=== PATIENT | male | born 1985 | race Caucasian/White ===

== ENCOUNTER → 2017-11-11 | Outpatient (CLI) | payer OTHER ==
[~2017-11-11] MED LIST: MESA800T PO; PANT40TA2 PO
[2017-11-11 12:07] LABS: BASOPHILS # (AUTO) 0.1 10^3/uL (0.0-0.1); BASOPHILS % (AUTO) 1 % (0-10); EOSINOPHILS # (AUTO) 0.7 10^3/uL (0.0-0.3); EOSINOPHILS % (AUTO) 8 % (0-10); HEMATOCRIT 44 % (40-54); HEMOGLOBIN 15.2 G/DL (13.3-17.7); LYMPHOCYTES # (AUTO) 3.1 X 10^3 (1.0-4.0); LYMPHOCYTES % (AUTO) 33 % (12-44); MEAN CORPUSCULAR HEMOGLOBIN 32 PG (25-34); MEAN CORPUSCULAR HGB CONC 34 G/DL (32-36); MEAN CORPUSCULAR VOLUME 92 FL (80-99); MEAN PLATELET VOLUME 9.5 FL (7.4-10.4); MONOCYTES # (AUTO) 1.4 X 10^3 (0.0-1.0); MONOCYTES % (AUTO) 15 % (0-12); NEUTROPHILS # (AUTO) 4.1 X 10^3 (1.8-7.8); NEUTROPHILS % (AUTO) 44 % (42-75); PLATELET COUNT 304 10^3/uL (130-400); RED BLOOD COUNT 4.83 10^6/uL (4.35-5.85); RED CELL DISTRIBUTION WIDTH 12.5 % (10.0-14.5); WHITE BLOOD COUNT 9.4 10^3/uL (4.3-11.0)
== END ==
LOC: LAB 11:52
PROVIDERS: ATTEND Internal Medicine Gastroenterology
DX: K50.90 Crohn's disease, unspecified, without complications (principal)
CPT/HCPCS: 36415; 85025

== ENCOUNTER 2017-11-21 08:44 | Emergency (ER) | payer OTHER ==
[~2017-11-21] VITALS: Ht 177.8 cm; Wt 104.3 kg
--- NOTE | 2017-11-21 09:19 | ED Cough/URI ---
General Chief Complaint: Cough/Cold/Flu Symptoms Stated Complaint: SHARP PAIN IN BACK, CHEST CONGESTION Nursing Triage Note: AMB TO ROOM REPORTS 2 WEEK AGO WAS DX WITH STREP AND FLU. CON'T TO HAVE COUGH AND CONGESTION Source: patient Exam Limitations: no limitations History of Present Illness Date Seen by Provider: Nov 21, 2017 Time Seen by Provider: 08:55 Initial Comments Here with report of 2 weeks of upper respiratory symptoms including strep throat and probable influenza. Has persistent cough and nasal congestion currently with some pain in the posterior aspect with cough of the left side of the chest. Denies breathing problems other than the congestion and denies chest pain other than when coughing. Denies nausea or vomiting. Has been using hooa-njw-vmewhlw cough medicine and this is not helping much. Timing/Duration: getting worse Severity/Quality: moderate, dry cough Prior Episodes/Possible Cause: occasional episodes Associated Symptoms: chest pain/soreness, cough, fever/chills, muscle aches, nasal congestion, nasal drainage, shortness of breath, sore throat Allergies and Home Medications Allergies Coded Allergies: erythromycin base (Verified Allergy, Unknown, 08/26/16) Home Medications Mesalamine 800 Mg Tablet.dr, 800 MG PO TID, #90 Ref 2 Prescribed by: CONSTANCE SEGURA on 08/28/16 1147 Pantoprazole Sodium 40 Mg Tablet.dr, 40 MG PO DAILY, #30 Ref 3 Prescribed by: CONSTANCE SEGURA on 08/28/16 1146 Constitutional: see HPI, No chills, No fever EENTM: nose congestion, throat pain Respiratory: cough, No short of breath Cardiovascular: see HPI, No palpitations Gastrointestinal: No abdominal pain, No nausea, No vomiting Skin: no symptoms reported Past Fopkcuy-Jswgjq-Bwqawd Hx Patient Social History Alcohol Use: Occasionally Uses Recreational Drug Use: No Smoking Status: Former Smoker Type Used: Smokeless Tobacco Former Smoker, Quit: Aug 26, 2015 Recent Foreign Travel: No Contact w/Someone Who Travel: No Recent Infectious Disease Expo: No Recent Hopitalizations: Yes Immunizations Up To Date Date of Influenza Vaccine: Jul 26, 2016 Seasonal Allergies Seasonal Allergies: Yes Surgeries History of Surgeries: Yes (wisdom teeth, EGD, COLONOSCOPY) Surgeries: Tonsillectomy, Vasectomy Respiratory History of Respiratory Disorde: Yes Cardiovascular History of Cardiac Disorders: No Neurological History of Neurological Disord: No Reproductive System Hx Reproductive Disorders: No Gastrointestinal History of Gastrointestinal Di: Yes Gastrointestinal Disorders: Colitis Musculoskeletal History of Musculoskeletal Dis: No Endocrine History of Endocrine Disorders: No Cancer History of Cancer: No Psychosocial History of Psychiatric Problem: No Integumentary History of Skin or Integumenta: No Blood Transfusions History of Blood Disorders: No Reviewed Nursing Assessment Reviewed/Agree w Nursing PMH: Yes Family Medical History Significant Family History: No Pertinent Family Hx Physical Exam Vital Signs Vital Signs - First Documented 11/21/17 08:49 Temp 98.2 Pulse 97 Resp 18 B/P (MAP) 138/72 (94) Pulse Ox 98 O2 Delivery Room Air Capillary Refill : Less Than 3 Seconds General Appearance: WD/WN, no apparent distress HEENT: PERRL/EOMI, TMs normal, pharyngeal erythema, other (moderate bilateral nasal congestion with clear rhinorrhea. Moderate sinus pressure noted to the face.) Neck: full range of motion, supple Respiratory: no accessory muscle use, crackles (left midlung), No wheezing Cardiovascular: regular rate, rhythm, no murmur Gastrointestinal: non tender, soft Extremities: non-tender, normal inspection Neurologic/Psychiatric: alert, oriented x 3 Skin: normal color, warm/dry Progress/Results/Core Measures Suspected Sepsis Recent Fever Within 48 Hours: No Infection Criteria Present: None New/Unexplained Altered Menta: No Sepsis Screen: No Definite Risk Sepsis Diagnosis: SIRS Temperature:98.2 Pulse: 97 Respiratory Rate: 18 Blood Pressure 138 /72 Mean: 94 Results/Orders My Orders Orders - EULA PATEL MD Chest Pa/Lat (2 View) (11/21/17 08:53) Vital Signs/I&O Vital Sign - Last 12Hours 11/21/17 08:49 Temp 98.2 Pulse 97 Resp 18 B/P (MAP) 138/72 (94) Pulse Ox 98 O2 Delivery Room Air Capillary Refill : Less Than 3 Seconds Blood Pressure Mean: 94 Progress Note : Progress Note Seen and evaluated. Two-view chest x-ray ordered. 0936: Chest x-ray is negative. Patient does have the upper respiratory symptoms and there is concerns about sinusitis. Patient is on Humira for his colitis so I think antibiotics would be appropriate. This was discussed with the patient who agrees. Discharged home with return precautions. Patient verbalize understanding of instructions and agreement with plan. Diagnostic Imaging Diagonstic Imaging: Xray Plain Films/CT/US/NM/MRI: chest Comments NAME: YRN BACON [employer] REC#: [id number] PT STATUS: REG ER : 1985 PHYSICIAN: EULA PATEL MD ADMIT DATE: 11/21/17/ER Signed Date of Exam: 11/21/17 CHEST PA/LAT (2 VIEW) INDICATION: Cough, tightness of the chest. FINDINGS: The lungs are clear. The heart size and vascularity are within normal limits. There is no effusion or pneumothorax. IMPRESSION: No acute appearing abnormality. Dictated by: Dictated on workstation # [id number] Dict: 11/21/17913 Trans: 11/21/17932 Interpreted by: ERINN BYRNE Electronically signed by: ERINN BYRNE 11/21/17932 Reviewed: Reviewed by Me Departure Impression Impression: Primary Impression: Upper respiratory infection Qualified Codes: J06.9 - Acute upper respiratory infection, unspecified Additional Impression: Acute sinusitis Qualified Codes: J01.10 - Acute frontal sinusitis, unspecified Disposition: 01 HOME, SELF-CARE Condition: Improved Departure-Patient Inst. Decision time for Depature: 09:41 Referrals: JOHN CORTEZ MD (PCP/Family) Primary Care Physician Patient Instructions: Bacterial Upper Respiratory Infection, Adult (DC), Sinusitis, Adult (DC) Add. Discharge Instructions: All discharge instructions reviewed with patient and/or family. Voiced understanding. Take medications as directed. Follow-up with your DrRoshan in a few days for recheck. Return for worse pain, fever, vomiting, weakness, breathing problems or other concerns as needed. Drink plenty of fluids. You may use Afrin nasal spray or the generic, 12 hour relief, 2 sprays to each nostril twice daily for 3 days only and then stop. Do not use more than 3 days. Scripts Cefdinir (Cefdinir) 300 Mg Capsule 300 MG PO BID, #20 CAP 0 Refills Prov: EULA PATEL MD 11/21/17 EULA PATEL MD Nov 21, 2017 09:19
[2017-11-21] MEDS ORDERED: CEFD300C3 PO (09:43)
[2017-11-21 10:08] VITALS: BP 134/72
--- OUTSIDE RECORDS SUMMARY | 2017-11-22 11:08 | XMS REPORT | Continuity of Care Document ---
Author Author [facility] Organization [facility] Address Unknown Phone Unavailable Allergies Active Description Code Type Severity Reaction Onset Reported/Identified Relationship to Patient Clinical Status Yes erythromycin base [id number] Drug Allergy Unknown N/A 08/26/2016 Medications There is no data. Problems Date Dx Coded Attending Type Code Diagnosis Diagnosed By 08/28/2014 Ot 845.00 08/28/2014 Ot E000.8 08/28/2014 Ot E849.0 08/28/2014 Ot E927.0 02/23/2015 Ot 845.00 02/23/2015 Ot E000.8 02/23/2015 Ot E849.0 02/23/2015 Ot E927.0 02/23/2015 Ot 845.00 02/23/2015 Ot E000.8 02/23/2015 Ot E849.0 02/23/2015 Ot E927.0 03/17/2015 Ot 845.00 03/17/2015 Ot E000.8 03/17/2015 Ot E849.0 03/17/2015 Ot E927.0 03/17/2015 LOS GRAHAM MD Ot V25.8 04/03/2015 LOS GRAHAM MD Ot V25.8 04/03/2015 Ot 845.00 04/03/2015 Ot E000.8 04/03/2015 Ot E849.0 04/03/2015 Ot E927.0 04/03/2015 LOS GRAHAM MD Ot V25.8 04/20/2015 Ot 845.00 04/20/2015 Ot E000.8 04/20/2015 Ot E849.0 04/20/2015 Ot E927.0 04/20/2015 LOS GRAHAM MD Ot V25.8 05/24/2015 LOS GRAHAM MD Ot V25.8 08/20/2016 DI ALEXANDREP Ot K76.0 FATTY (CHANGE OF) LIVER, NOT ELSEWHERE C 08/20/2016 DI ALEXANDRE BLIND CLEANER Ot R10.84 GENERALIZED ABDOMINAL PAIN 08/20/2016 DI ALEXANDRE BLIND CLEANER Ot R59.0 LOCALIZED ENLARGED LYMPH NODES 08/20/2016 DI ALEXANDRE BLIND CLEANER Ot R91.1 SOLITARY PULMONARY NODULE 08/20/2016 DI ALEXANDRE BLIND CLEANER Ot K76.0 FATTY (CHANGE OF) LIVER, NOT ELSEWHERE C 08/20/2016 DI ALEXANDRE BLIND CLEANER Ot R10.84 GENERALIZED ABDOMINAL PAIN 08/20/2016 DI ALEXANDRE BLIND CLEANER Ot R59.0 LOCALIZED ENLARGED LYMPH NODES 08/20/2016 DI ALEXANDRE BLIND CLEANER Ot R91.1 SOLITARY PULMONARY NODULE 08/26/2016 COLTON BAE, CONSTANCE Salcido Ot Z01.818 ENCOUNTER FOR OTHER PREPROCEDURAL EXAMIN 08/27/2016 CONSTANCE SEGURA MD Ot Z01.818 ENCOUNTER FOR OTHER PREPROCEDURAL EXAMIN 08/28/2016 CONSTANCE SEGURA MD Ot K25.9 GASTRIC ULCER, UNSP ACUTE OR CHRONIC, 08/28/2016 CONSTANCE SEGURA MD Ot K52.9 NONINFECTIVE GASTROENTERITIS AND COLITIS 08/28/2016 CONSTANCE SEGURA MD Ot K62.89 OTHER SPECIFIED DISEASES OF ANUS AND REC 08/28/2016 CONSTANCE SEGURA MD Ot K92.1 MELENA 08/28/2016 CONSTANCE SEGURA MD Ot R19.7 DIARRHEA, UNSPECIFIED 09/08/2016 CONSTANCE SEGURA MD Ot K25.9 GASTRIC ULCER, UNSP ACUTE OR CHRONIC, 09/08/2016 CONSTANCE SEGURA MD Ot K52.9 NONINFECTIVE GASTROENTERITIS AND COLITIS 09/08/2016 CONSTANCE SEGURA MD Ot K62.89 OTHER SPECIFIED DISEASES OF ANUS AND REC 09/08/2016 CONSTANCE SEGURA MD Ot K92.1 MELENA 09/09/2016 CONSTANCE SEGURA MD Ot K25.9 GASTRIC ULCER, UNSP ACUTE OR CHRONIC, 09/09/2016 CONSTANCE SEGURA MD Ot K52.9 NONINFECTIVE GASTROENTERITIS AND COLITIS 09/09/2016 CONSTANCE SEGURA MD Ot K62.89 OTHER SPECIFIED DISEASES OF ANUS AND REC 09/09/2016 CONSTANCE SEGURA MD M Ot K92.1 MELENA 09/10/2016 COLTON BAE, CONSTANCE Salcido Ot K25.9 GASTRIC ULCER, UNSP ACUTE OR CHRONIC, 09/10/2016 COLTON BAE, CONSTANCE Salcido Ot K52.9 NONINFECTIVE GASTROENTERITIS AND COLITIS 09/10/2016 COLTON BAE, CONSTANCE Salcido Ot K62.89 OTHER SPECIFIED DISEASES OF ANUS AND REC 09/10/2016 COLTON BAE, CONSTANCE Salcido Ot K92.1 MELENA 09/11/2016 DI ALEXANDRE BLIND CLEANER Ot K76.0 FATTY (CHANGE OF) LIVER, NOT ELSEWHERE C 09/11/2016 DI ALEXANDRE BLIND CLEANER Ot R10.84 GENERALIZED ABDOMINAL PAIN 09/11/2016 DI ALEXANDRE BLIND CLEANER Ot R59.0 LOCALIZED ENLARGED LYMPH NODES 09/11/2016 DI ALEXANDRE BLIND CLEANER Ot R91.1 SOLITARY PULMONARY NODULE 09/11/2016 GARTH GILLIS [employer] Ot K92.1 MELENA 09/11/2016 GARTH GILLIS [employer] TEACHER Ot R53.83 OTHER FATIGUE 09/22/2016 GARTH GILLIS [employer] TEACHER Ot R07.9 CHEST PAIN, UNSPECIFIED 09/23/2016 GARTH GILLIS 7[employer] TEACHER Ot R07.9 CHEST PAIN, UNSPECIFIED 09/26/2016 ARNIE BAE, NUNU Chavez Ot K51.90 ULCERATIVE COLITIS, UNSPECIFIED, WITHOUT 09/29/2016 ID ALEXANDRE BLIND CLEANER Ot K76.0 FATTY (CHANGE OF) LIVER, NOT ELSEWHERE C 09/29/2016 DI ALEXANDRE BLIND CLEANER Ot R10.84 GENERALIZED ABDOMINAL PAIN 09/29/2016 DI ALEXANDRE BLIND CLEANER Ot R59.0 LOCALIZED ENLARGED LYMPH NODES 09/29/2016 DI ALEXANDRE BLIND CLEANER Ot R91.1 SOLITARY PULMONARY NODULE 09/29/2016 GARTH GILLIS [employer] TEACHER Ot K92.1 MELENA 09/29/2016 GARTH GILLIS 7[employer]UDIES TEACHER Ot R53.83 OTHER FATIGUE 09/29/2016 GARTH GILLIS 7[employer]UD[employer] TEACHER Ot R07.9 CHEST PAIN, UNSPECIFIED 09/29/2016 GARTH GILLIS 7[employer]UD[employer] TEACHER Ot D64.9 ANEMIA, UNSPECIFIED 09/29/2016 GARTH GILLIS [employer] TEACHER Ot K92.1 MELENA 09/29/2016 ARNIE BAE, NUNU P Ot K51.90 ULCERATIVE COLITIS, UNSPECIFIED, WITHOUT 10/01/2016 ADRIENNE BAE, YOJANA Travis Ot D64.9 ANEMIA, UNSPECIFIED 10/02/2016 ARNIE BAE, NUNU P Ot K51.90 ULCERATIVE COLITIS, UNSPECIFIED, WITHOUT 10/03/2016 ARNIE BAE, NUNU P Ot K51.90 ULCERATIVE COLITIS, UNSPECIFIED, WITHOUT 10/06/2016 FABIAN KATHLEEN [employer] TE[employer]ER Ot D64.9 ANEMIA, UNSPECIFIED 10/06/2016 FABIAN KATHLEEN [employer] TEACHER Ot I82.442 ACUTE EMBOLISM AND THROMBOSIS OF LEFT TI 10/06/2016 FABIAN KATHLEEN [employer] TEACHER Ot K51.911 ULCERATIVE COLITIS, UNSPECIFIED WITH REC 10/06/2016 FABIAN KATHLEEN [employer] TEACHER Ot M79.662 PAIN IN LEFT LOWER LEG 10/07/2016 FABIAN KATHLEEN APRN Ot D64.9 ANEMIA, UNSPECIFIED 10/07/2016 FABIAN KATHLEEN [employer] TEACHER Ot I82.442 ACUTE EMBOLISM AND THROMBOSIS OF LEFT TI 10/07/2016 FABIAN KATHLEEN [employer] TEACHER Ot K51.911 ULCERATIVE COLITIS, UNSPECIFIED WITH REC 10/07/2016 FABIAN KATHLEEN [employer] TEACHER Ot M79.662 PAIN IN LEFT LOWER LEG 10/12/2016 FABIAN KATHLEEN 7[employer] TEACHER Ot D64.9 ANEMIA, UNSPECIFIED 10/12/2016 FABIAN KATHLEEN 7[employer]UD[employer] TEACHER Ot I82.442 ACUTE EMBOLISM AND THROMBOSIS OF LEFT TI 10/12/2016 FABIAN KATHLEEN [employer] TEACHER Ot K51.911 ULCERATIVE COLITIS, UNSPECIFIED WITH REC 10/12/2016 FABIAN KATHLEEN [employer] TEACHER Ot M79.662 PAIN IN LEFT LOWER LEG 10/16/2016 GARTH GILLIS [employer] TEACHER Ot R07.9 CHEST PAIN, UNSPECIFIED 10/22/2016 GARTH GILLIS [employer] TEACHER Ot D64.9 ANEMIA, UNSPECIFIED 10/22/2016 GARTH GILLIS [employer] TEACHER Ot K92.1 MELENA 10/22/2016 ARNIE BAE, NUNU P Ot K51.90 ULCERATIVE COLITIS, UNSPECIFIED, WITHOUT 10/30/2016 ADRIENNE BAE, YOJANA Travis Ot D64.9 ANEMIA, UNSPECIFIED 10/30/2016 ARNIE BAE, NUNU P Ot K51.90 ULCERATIVE COLITIS, UNSPECIFIED, WITHOUT 01/18/2017 ARNIE BAE, NUNU P Ot K51.90 ULCERATIVE COLITIS, UNSPECIFIED, WITHOUT 02/10/2017 ARNIE BAE, NUNU P Ot K51.90 ULCERATIVE COLITIS, UNSPECIFIED, WITHOUT 08/27/2017 DI ALEXANDRE BLIND CLEANER Ot K76.0 FATTY (CHANGE OF) LIVER, NOT ELSEWHERE C 08/27/2017 DI ALEXANDRE BLIND CLEANER Ot R10.84 GENERALIZED ABDOMINAL PAIN 08/27/2017 DI ALEXANDRE BLIND CLEANER Ot R59.0 LOCALIZED ENLARGED LYMPH NODES 08/27/2017 DI ALEXANDRE BLIND CLEANER Ot R91.1 SOLITARY PULMONARY NODULE 08/27/2017 GARTH GILLIS [employer] TEACHER Ot K92.1 MELENA 08/27/2017 GARTH GILLIS [employer]IES TEACHER Ot R53.83 OTHER FATIGUE 08/27/2017 GARTH GILLIS [employer]IES TEACHER Ot R07.9 CHEST PAIN, UNSPECIFIED 08/27/2017 GARTH GILLIS [employer]UDIES TEACHER Ot D64.9 ANEMIA, UNSPECIFIED 08/27/2017 GARTH GILLIS 7[employer]IES TEACHER Ot K92.1 MELENA 08/27/2017 ARNIE BAE, NUNU P Ot K51.90 ULCERATIVE COLITIS, UNSPECIFIED, WITHOUT 08/27/2017 ADRIENNE BAE, YOJANA Travis Ot D64.9 ANEMIA, UNSPECIFIED 08/27/2017 ARNIE BAE, NUNU P Ot K51.90 ULCERATIVE COLITIS, UNSPECIFIED, WITHOUT 08/30/2017 DI ALEXANDRE BLIND CLEANER Ot K76.0 FATTY (CHANGE OF) LIVER, NOT ELSEWHERE C 08/30/2017 DI ALEXANDRE BLIND CLEANER Ot R10.84 GENERALIZED ABDOMINAL PAIN 08/30/2017 DI ALEXANDRE BLIND CLEANER Ot R59.0 LOCALIZED ENLARGED LYMPH NODES 08/30/2017 DI ALEXANDRE BLIND CLEANER Ot R91.1 SOLITARY PULMONARY NODULE 08/30/2017 GARTH GILLIS [employer] TEACHER Ot K92.1 MELENA 08/30/2017 GARTH GILLIS 7[employer]UDIES TEACHER Ot R53.83 OTHER FATIGUE 08/30/2017 GARTH GILLIS [employer]UDIES TEACHER Ot R07.9 CHEST PAIN, UNSPECIFIED 08/30/2017 GARTH GILLIS 7[employer]UDIES TEACHER Ot D64.9 ANEMIA, UNSPECIFIED 08/30/2017 GARTH GILLIS 7[employer]UDIES TEACHER Ot K92.1 MELENA 08/30/2017 ARNIE BAE, NUNU P Ot K51.90 ULCERATIVE COLITIS, UNSPECIFIED, WITHOUT 08/30/2017 ADRIENNE BAE, YOJANA Travis Ot D64.9 ANEMIA, UNSPECIFIED 08/30/2017 ARNIE BAE, NUNU P Ot K51.90 ULCERATIVE COLITIS, UNSPECIFIED, WITHOUT 11/11/2017 ALEXANDREDI BLIND CLEANER Ot K76.0 FATTY (CHANGE OF) LIVER, NOT ELSEWHERE C 11/11/2017 BETTIEDI BLIND CLEANER Ot R10.84 GENERALIZED ABDOMINAL PAIN 11/11/2017 BETTIEDI BLIND CLEANER Ot R59.0 LOCALIZED ENLARGED LYMPH NODES 11/11/2017 BETTIEDI BLIND CLEANER Ot R91.1 SOLITARY PULMONARY NODULE 11/11/2017 GARTH GILLIS [employer]UDIES TEACHER Ot K92.1 MELENA 11/11/2017 GARTH GILLIS [employer]UDIES TEACHER Ot R53.83 OTHER FATIGUE 11/11/2017 GARTH GILLIS 7[employer]UDIES TEACHER Ot R07.9 CHEST PAIN, UNSPECIFIED 11/11/2017 GARTH GILLIS 7[employer]UDIES TEACHER Ot D64.9 ANEMIA, UNSPECIFIED 11/11/2017 GARTH GILLIS 7[employer]UDIES TEACHER Ot K92.1 MELENA 11/11/2017 ARNIE BAE, NUNU Chavez Ot K51.90 ULCERATIVE COLITIS, UNSPECIFIED, WITHOUT 11/11/2017 ADRIENNE BAE, YOJANA Travis Ot D64.9 ANEMIA, UNSPECIFIED 11/11/2017 ARNIE BAE, NUNU Chavez Ot K51.90 ULCERATIVE COLITIS, UNSPECIFIED, WITHOUT 11/12/2017 ARNIE BAE, NUNU Chavez Ot K50.90 CROHN'S DISEASE, UNSPECIFIED, WITHOUT CO Procedures There is no data. Results Test Result Range Whole blood hemoglobin and hematocrit panel - 08/18/16 17:10 Venous blood hemoglobin measurement (mass/volume) 15.5 g/dL 13.3-17.7 Blood hematocrit (volume fraction) 45 % 40-54 Complete blood count (CBC) with automated white blood cell (WBC) differential - 08/28/16 12:54 Blood leukocytes automated count (number/volume) 10.5 10*3/uL 4.3-11.0 Blood erythrocytes automated count (number/volume) 4.38 10*6/uL 4.35-5.85 Venous blood hemoglobin measurement (mass/volume) 13.3 g/dL 13.3-17.7 Blood hematocrit (volume fraction) 39 % 40-54 Automated erythrocyte mean corpuscular volume 88 [foz_us] 80-99 Automated erythrocyte mean corpuscular hemoglobin (mass per erythrocyte) 30 pg 25-34 Automated erythrocyte mean corpuscular hemoglobin concentration measurement ( mass/volume) 34 g/dL 32-36 Automated erythrocyte distribution width ratio 12.9 % 10.0-14.5 Automated blood platelet count (count/volume) 323 10*3/uL 130-400 Automated blood platelet mean volume measurement 9.4 [foz_us] 7.4-10.4 Automated blood neutrophils/100 leukocytes 50 % 42-75 Automated blood lymphocytes/100 leukocytes 32 % 12-44 Blood monocytes/100 leukocytes 12 % 0-12 Automated blood eosinophils/100 leukocytes 6 % 0-10 Automated blood basophils/100 leukocytes 0 % 0-10 Blood neutrophils automated count (number/volume) 5.2 10*3 1.8-7.8 Blood lymphocytes automated count (number/volume) 3.3 10*3 1.0-4.0 Blood monocytes automated count (number/volume) 1.3 10*3 0.0-1.0 Automated eosinophil count 0.7 10*3/uL 0.0-0.3 Automated blood basophil count (count/volume) 0.0 10*3/uL 0.0-0.1 Comprehensive metabolic panel - 08/28/16 12:54 Serum or plasma sodium measurement (moles/volume) 138 mmol/L 135-145 Serum or plasma potassium measurement (moles/volume) 3.9 mmol/L 3.6-5.0 Serum or plasma chloride measurement (moles/volume) 104 mmol/L 98-107 Carbon dioxide 28 mmol/L 21-32 Serum or plasma anion gap determination (moles/volume) 6 mmol/L 5-14 Serum or plasma urea nitrogen measurement (mass/volume) 8 mg/dL 7-18 Serum or plasma creatinine measurement (mass/volume) 1.04 mg/dL 0.60-1.30 Serum or plasma urea nitrogen/creatinine mass ratio 8 NRG Serum or plasma creatinine measurement with calculation of estimated glomerular filtration rate > NRG Serum or plasma glucose measurement (mass/volume) 88 mg/dL 70-105 Serum or plasma calcium measurement (mass/volume) 8.7 mg/dL 8.5-10.1 Serum or plasma total bilirubin measurement (mass/volume) 0.5 mg/dL 0.1-1.0 Serum or plasma alkaline phosphatase measurement (enzymatic activity/volume) 75 U/L 40-136 Serum or plasma aspartate aminotransferase measurement (enzymatic activity/ volume) 20 U/L 5-34 Serum or plasma alanine aminotransferase measurement (enzymatic activity/volume ) 23 U/L 0-55 Serum or plasma protein measurement (mass/volume) 6.2 g/dL 6.4-8.2 Serum or plasma albumin measurement (mass/volume) 3.7 g/dL 3.2-4.5 Serum or plasma irritable bowel disease prognostic panel by immunoassay - 08/28 12:54 Antineutrophil cytoplasmic antibody (ANCA) assay <1:20 < 1:20 Antineutrophil cytoplasmic antibody (ANCA) pattern Not Indicated NRG Serum cardoso's yeast IgA antibody assay (units/volume) < % NRG Serum cardoso's yeast IgG antibody assay (units/volume) < % NRG Complete blood count (CBC) with automated white blood cell (WBC) differential - 09/25/16 20:14 Blood leukocytes automated count (number/volume) 14.4 10*3/uL 4.3-11.0 Blood erythrocytes automated count (number/volume) 3.20 10*6/uL 4.35-5.85 Venous blood hemoglobin measurement (mass/volume) 8.6 g/dL 13.3-17.7 Blood hematocrit (volume fraction) 28 % 40-54 Automated erythrocyte mean corpuscular volume 86 [foz_us] 80-99 Automated erythrocyte mean corpuscular hemoglobin (mass per erythrocyte) 27 pg 25-34 Automated erythrocyte mean corpuscular hemoglobin concentration measurement ( mass/volume) 31 g/dL 32-36 Automated erythrocyte distribution width ratio 12.9 % 10.0-14.5 Automated blood platelet count (count/volume) 504 10*3/uL 130-400 Automated blood platelet mean volume measurement 9.4 [foz_us] 7.4-10.4 Automated blood neutrophils/100 leukocytes 64 % 42-75 Automated blood lymphocytes/100 leukocytes 24 % 12-44 Blood monocytes/100 leukocytes 12 % 0-12 Automated blood eosinophils/100 leukocytes 1 % 0-10 Automated blood basophils/100 leukocytes 0 % 0-10 Blood neutrophils automated count (number/volume) 9.2 10*3 1.8-7.8 Blood lymphocytes automated count (number/volume) 3.4 10*3 1.0-4.0 Blood monocytes automated count (number/volume) 1.7 10*3 0.0-1.0 Automated eosinophil count 0.1 10*3/uL 0.0-0.3 Automated blood basophil count (count/volume) 0.0 10*3/uL 0.0-0.1 Complete blood count (CBC) with automated white blood cell (WBC) differential - 09/25/16 20:14 Blood leukocytes automated count (number/volume) 14.7 10*3/uL 4.3-11.0 Blood erythrocytes automated count (number/volume) 3.14 10*6/uL 4.35-5.85 Venous blood hemoglobin measurement (mass/volume) 8.6 g/dL 13.3-17.7 Blood hematocrit (volume fraction) 27 % 40-54 Automated erythrocyte mean corpuscular volume 87 [foz_us] 80-99 Automated erythrocyte mean corpuscular hemoglobin (mass per erythrocyte) 27 pg 25-34 Automated erythrocyte mean corpuscular hemoglobin concentration measurement ( mass/volume) 31 g/dL 32-36 Automated erythrocyte distribution width ratio 13.0 % 10.0-14.5 Automated blood platelet count (count/volume) 516 10*3/uL 130-400 Automated blood platelet mean volume measurement 9.5 [foz_us] 7.4-10.4 Automated blood neutrophils/100 leukocytes 64 % 42-75 Automated blood lymphocytes/100 leukocytes 23 % 12-44 Blood monocytes/100 leukocytes 12 % 0-12 Automated blood eosinophils/100 leukocytes 1 % 0-10 Automated blood basophils/100 leukocytes 0 % 0-10 Blood neutrophils automated count (number/volume) 9.4 10*3 1.8-7.8 Blood lymphocytes automated count (number/volume) 3.4 10*3 1.0-4.0 Blood monocytes automated count (number/volume) 1.8 10*3 0.0-1.0 Automated eosinophil count 0.1 10*3/uL 0.0-0.3 Automated blood basophil count (count/volume) 0.0 10*3/uL 0.0-0.1 Blood manual differential performed detection - 09/25/16 20:14 Blood monocytes/100 leukocytes 5 % NRG Manual blood segmented neutrophils/100 leukocytes 50 % NRG Blood band neutrophils/100 leukocytes 9 % NRG Manual blood lymphocytes/100 leukocytes 33 % NRG Manual eosinophils/100 leukocytes in nose 2 % NRG Manual blood basophils/100 leukocytes 1 % NRG Blood hypochromia detection by light microscopy MODERATE NRG Blood stomatocytes detection by light microscopy SLIGHT NRG Blood spherocytes detection by light microscopy SLIGHT NRG Blood manual differential performed detection - 09/25/16 20:14 Blood monocytes/100 leukocytes 5 % NRG Manual blood segmented neutrophils/100 leukocytes 50 % NRG Blood band neutrophils/100 leukocytes 9 % NRG Manual blood lymphocytes/100 leukocytes 33 % NRG Manual eosinophils/100 leukocytes in nose 2 % NRG Manual blood basophils/100 leukocytes 1 % NRG Blood hypochromia detection by light microscopy MODERATE NRG Blood stomatocytes detection by light microscopy SLIGHT NRG Blood spherocytes detection by light microscopy SLIGHT NRG Automated blood complete blood count (hemogram) panel - 09/29/16 15:01 Blood leukocytes automated count (number/volume) 12.2 10*3/uL 4.3-11.0 Blood erythrocytes automated count (number/volume) 3.14 10*6/uL 4.35-5.85 Venous blood hemoglobin measurement (mass/volume) 8.2 g/dL 13.3-17.7 Blood hematocrit (volume fraction) 27 % 40-54 Automated erythrocyte mean corpuscular volume 86 [foz_us] 80-99 Automated erythrocyte mean corpuscular hemoglobin (mass per erythrocyte) 26 pg 25-34 Automated erythrocyte mean corpuscular hemoglobin concentration measurement ( mass/volume) 31 g/dL 32-36 Automated erythrocyte distribution width ratio 13.6 % 10.0-14.5 Automated blood platelet count (count/volume) 478 10*3/uL 130-400 Automated blood platelet mean volume measurement 8.7 [foz_us] 7.4-10.4 [id number] - 09/29/16 15:01 [id number] SPECIMEN AVAILABLE NRG QUANTIFERON-TB GOLD - 09/29/16 15:01 QuantiFERON-TB test Negative NEGATIVE Mitogen stimulated gamma interferon [units/volume] corrected for background in blood 0.06 [iU]/mL 0.00-7.99 Mitogen stimulated gamma interferon [units/volume] in blood 1.27 [iU ]/mL 0.50-10.00 Qualitative QuantiFERON-TB gold in tube test 0.02 0.00- 0.34 Complete blood count (CBC) with automated white blood cell (WBC) differential - 10/06/16 14:40 Blood leukocytes automated count (number/volume) 16.1 10*3/uL 4.3-11.0 Blood erythrocytes automated count (number/volume) 3.90 10*6/uL 4.35-5.85 Venous blood hemoglobin measurement (mass/volume) 9.9 g/dL 13.3-17.7 Blood hematocrit (volume fraction) 33 % 40-54 Automated erythrocyte mean corpuscular volume 84 [foz_us] 80-99 Automated erythrocyte mean corpuscular hemoglobin (mass per erythrocyte) 25 pg 25-34 Automated erythrocyte mean corpuscular hemoglobin concentration measurement ( mass/volume) 30 g/dL 32-36 Automated erythrocyte distribution width ratio 14.7 % 10.0-14.5 Automated blood platelet count (count/volume) 454 10*3/uL 130-400 Automated blood platelet mean volume measurement 9.1 [foz_us] 7.4-10.4 Automated blood neutrophils/100 leukocytes 72 % 42-75 Automated blood lymphocytes/100 leukocytes 21 % 12-44 Blood monocytes/100 leukocytes 6 % 0-12 Automated blood eosinophils/100 leukocytes 1 % 0-10 Automated blood basophils/100 leukocytes 0 % 0-10 Blood neutrophils automated count (number/volume) 11.5 10*3 1.8-7.8 Blood lymphocytes automated count (number/volume) 3.3 10*3 1.0-4.0 Blood monocytes automated count (number/volume) 1.0 10*3 0.0-1.0 Automated eosinophil count 0.2 10*3/uL 0.0-0.3 Automated blood basophil count (count/volume) 0.0 10*3/uL 0.0-0.1 Complete urinalysis with reflex to culture - 10/06/16 14:40 Urine color determination YELLOW NRG Urine clarity determination CLEAR NRG Urine pH measurement by test strip 5 5-9 Specific gravity of urine by test strip 1.025 1.016- 1.022 Urine protein assay by test strip, semi-quantitative NEGATIVE NEGATIVE Urine glucose detection by automated test strip NEGATIVE NEGATIVE Erythrocytes detection in urine sediment by light microscopy NEGATIVE NEGATIVE Urine ketones detection by automated test strip NEGATIVE NEGATIVE Urine nitrite detection by test strip NEGATIVE NEGATIVE Urine total bilirubin detection by test strip NEGATIVE NEGATIVE Urine urobilinogen measurement by automated test strip (mass/volume) NORMAL NORMAL Urine leukocyte esterase detection by dipstick 1+ NEGATIVE Automated urine sediment erythrocyte count by microscopy (number/high power field) NONE NRG Automated urine sediment leukocyte count by microscopy (number/high power field ) RARE NRG Bacteria detection in urine sediment by light microscopy NEGATIVE NRG Squamous epithelial cells detection in urine sediment by light microscopy NONE NRG Crystals detection in urine sediment by light microscopy PRESENT NRG Casts detection in urine sediment by light microscopy NONE NRG Mucus detection in urine sediment by light microscopy NEGATIVE NRG Complete urinalysis with reflex to culture NO NRG Calcium oxalate crystals detection in urine sediment by light microscopy LARGE NR Comprehensive metabolic panel - 10/06/16 14:40 Serum or plasma sodium measurement (moles/volume) 138 mmol/L 135-145 Serum or plasma potassium measurement (moles/volume) 3.7 mmol/L 3.6-5.0 Serum or plasma chloride measurement (moles/volume) 103 mmol/L 98-107 Carbon dioxide 23 mmol/L 21-32 Serum or plasma anion gap determination (moles/volume) 12 mmol/L 5-14 Serum or plasma urea nitrogen measurement (mass/volume) 8 mg/dL 7-18 Serum or plasma creatinine measurement (mass/volume) 0.81 mg/dL 0.60-1.30 Serum or plasma urea nitrogen/creatinine mass ratio 10 NRG Serum or plasma creatinine measurement with calculation of estimated glomerular filtration rate > NRG Serum or plasma glucose measurement (mass/volume) 130 mg/dL 70-105 Serum or plasma calcium measurement (mass/volume) 8.4 mg/dL 8.5-10.1 Serum or plasma total bilirubin measurement (mass/volume) 0.2 mg/dL 0.1-1.0 Serum or plasma alkaline phosphatase measurement (enzymatic activity/volume) 84 U/L 40-136 Serum or plasma aspartate aminotransferase measurement (enzymatic activity/ volume) 18 U/L 5-34 Serum or plasma alanine aminotransferase measurement (enzymatic activity/volume ) 32 U/L 0-55 Serum or plasma protein measurement (mass/volume) 6.4 g/dL 6.4-8.2 Serum or plasma albumin measurement (mass/volume) 3.2 g/dL 3.2-4.5 Blood manual differential performed detection - 10/06/16 14:40 Blood monocytes/100 leukocytes 8 % NRG Manual blood segmented neutrophils/100 leukocytes 71 % NRG Blood band neutrophils/100 leukocytes 0 % NRG Manual blood lymphocytes/100 leukocytes 20 % NRG Manual eosinophils/100 leukocytes in nose 1 % NRG Manual blood basophils/100 leukocytes 0 % NRG Blood erythrocyte morphology finding identification NORMAL NRG Complete blood count (CBC) with automated white blood cell (WBC) differential - 11/11/17 12:04 Blood leukocytes automated count (number/volume) 9.4 10*3/uL 4.3-11.0 Blood erythrocytes automated count (number/volume) 4.83 10*6/uL 4.35-5.85 Venous blood hemoglobin measurement (mass/volume) 15.2 g/dL 13.3-17.7 Blood hematocrit (volume fraction) 44 % 40-54 Automated erythrocyte mean corpuscular volume 92 [foz_us] 80-99 Automated erythrocyte mean corpuscular hemoglobin (mass per erythrocyte) 32 pg 25-34 Automated erythrocyte mean corpuscular hemoglobin concentration measurement ( mass/volume) 34 g/dL 32-36 Automated erythrocyte distribution width ratio 12.5 % 10.0-14.5 Automated blood platelet count (count/volume) 304 10*3/uL 130-400 Automated blood platelet mean volume measurement 9.5 [foz_us] 7.4-10.4 Automated blood neutrophils/100 leukocytes 44 % 42-75 Automated blood lymphocytes/100 leukocytes 33 % 12-44 Blood monocytes/100 leukocytes 15 % 0-12 Automated blood eosinophils/100 leukocytes 8 % 0-10 Automated blood basophils/100 leukocytes 1 % 0-10 Blood neutrophils automated count (number/volume) 4.1 10*3 1.8-7.8 Blood lymphocytes automated count (number/volume) 3.1 10*3 1.0-4.0 Blood monocytes automated count (number/volume) 1.4 10*3 0.0-1.0 Automated eosinophil count 0.7 10*3/uL 0.0-0.3 Automated blood basophil count (count/volume) 0.1 10*3/uL 0.0-0.1 Encounters ACCT No. Visit Date/Time Discharge Status Pt. Type Provider Facility Loc./Unit Complaint [id number] 11/11/2017 11:52:00 11/11/2017 23:59:59 CLS Outpatient NUNU GAITAN MD [facility] LAB K50.90 [id number] 10/06/2016 14:29:00 10/06/2016 17:57:00 DIS Emergency KATHLEEN FABIAN Odell [employer] [facility] ER LEFT CALF PAIN/SWELLING [id number] 09/29/2016 14:44:00 09/29/2016 23:59:59 CLS Outpatient NUNU GAITAN MD [facility] LAB K51.90 [id number] 09/29/2016 14:43:00 09/29/2016 23:59:59 CLS Outpatient YOJANA DELEON MD [facility] LAB ANEMIA, LOW HGB [id number] 09/25/2016 19:46:00 09/25/2016 23:59:59 CLS Outpatient NUNU GAITAN MD [facility] LAB DIARRHEA [id number] 09/25/2016 19:42:00 09/25/2016 23:59:59 CLS Outpatient GARHT GILLIS APRN [facility] LAB MELENA,ANEMIA [id number] 09/19/2016 11:36:00 09/19/2016 23:59:59 CLS Outpatient GARTH GILLIS APRN [facility] CARD CHEST PAIN [id number] 08/28/2016 10:01:00 08/28/2016 13:20:00 DIS Outpatient CONSTANCE SEGURA MD [facility] SDC BLACK TAR STOOLS; BLEEDING [id number] 08/26/2016 05:41:00 08/26/2016 23:59:59 CLS Outpatient CONSTANCE SEGURA MD [facility] PREOP BLACK TAR STOOLS [id number] 08/19/2016 13:27:00 08/19/2016 23:59:59 CLS Outpatient DI ALEXANDRE [facility] RAD ABD PAIN [id number] 08/18/2016 16:58:00 08/18/2016 23:59:59 CLS Outpatient GARTH GILLIS APRN [facility] LAB MELENA,FATIGUE [id number] 05/25/2015 00:11:00 05/25/2015 23:59:59 CLS Preadmit LOS GRAHAM MD [facility] LAB [id number] 02/23/2015 13:23:00 05/24/2015 00:01:00 DIS Outpatient LOS GRAHAM MD [facility] LAB [id number] 08/26/2011 12:04:00 Document Registration
== END 2017-11-21 10:08 | disposition home or self-care (01) ==
LOC: EDUNIT# 08:44 → ER 08:46
DX: J06.9 Acute upper respiratory infection, unspecified (principal); J01.90 Acute sinusitis, unspecified; Z87.19 Personal history of other diseases of the digestive system; Z90.89 Acquired absence of other organs; Z98.52 Vasectomy status; Z87.891 Personal history of nicotine dependence
CPT/HCPCS: 71046; 99282

== ENCOUNTER → 2019-11-04 | Outpatient (CLI) | payer OTHER ==
[~2019-11-04] MED LIST changes: +CEFD300C3 PO
[2019-11-04 11:52] LABS: BASOPHILS # (AUTO) 0.1 10^3/uL (0.0-0.1); BASOPHILS % (AUTO) 1 % (0-10); EOSINOPHILS # (AUTO) 0.3 10^3/uL (0.0-0.3); EOSINOPHILS % (AUTO) 3 % (0-10); HEMATOCRIT 41 % (40-54); HEMOGLOBIN 13.9 G/DL (13.3-17.7); LYMPHOCYTES # (AUTO) 3.3 X 10^3 (1.0-4.0); LYMPHOCYTES % (AUTO) 37 % (12-44); MEAN CORPUSCULAR HEMOGLOBIN 31 PG (25-34); MEAN CORPUSCULAR HGB CONC 34 G/DL (32-36); MEAN CORPUSCULAR VOLUME 91 FL (80-99); MEAN PLATELET VOLUME 9.4 FL (7.4-10.4); MONOCYTES # (AUTO) 0.9 X 10^3 (0.0-1.0); MONOCYTES % (AUTO) 10 % (0-12); NEUTROPHILS # (AUTO) 4.5 X 10^3 (1.8-7.8); NEUTROPHILS % (AUTO) 50 % (42-75); PLATELET COUNT 287 10^3/uL (130-400); RED CELL DISTRIBUTION WIDTH 13.3 % (10.0-14.5)
[2019-11-04 12:09] LABS: ALANINE AMINOTRANSFERASE 39 U/L (0-55); ALBUMIN 4.2 GM/DL (3.2-4.5); ALKALINE PHOSPHATASE 98 U/L (40-136); BILIRUBIN,TOTAL 0.4 MG/DL (0.1-1.0); BUN/CREATININE RATIO 8; CALCIUM 9.1 MG/DL (8.5-10.1); CARBON DIOXIDE 24 MMOL/L (21-32); CHLORIDE 107 MMOL/L (98-107); CREATININE SERUM 0.98 MG/DL (0.60-1.30); GFR ESTIMATED > 60; GLUCOSE 84 MG/DL (70-105); POTASSIUM 3.9 MMOL/L (3.6-5.0); SODIUM 141 MMOL/L (135-145); TOTAL PROTEIN 7.3 GM/DL (6.4-8.2)
--- NOTE | 2019-11-04 12:29 | Diagnostic Imaging Report ---
PROCEDURE: US left lower extremity venous. TECHNIQUE: Multiple real-time grayscale images were obtained over the left lower extremity in various projections. Additional duplex Doppler and color Doppler images were also obtained. INDICATION: Leg pain and swelling. FINDINGS: The previous left lower extremity venous Doppler exam of 10/06/2016 noted occlusive thrombus within the posterior tibial vein. On this exam, I am not certain that there is indeed thrombosis of the posterior tibial vein. However, There is thrombus formation now present in the peroneal vein. The common femoral, superficial femoral, and popliteal veins show good blood flow and compressibility. IMPRESSION: 1. There is thrombosis of the peroneal vein. There is no other deep venous thrombosis identified with certainty.. 2. These results were called to Tuyet Vu APRN, by our sonologist. Dictated by: Dictated on workstation # [id number]
== END ==
LOC: RAD 10:26
PROVIDERS: ATTEND Nurse Practitioner Family
DX: I82.452 Acute embolism and thrombosis of left peroneal vein (principal); I82.442 Acute embolism and thrombosis of left tibial vein
CPT/HCPCS: 36415; 80053; 85025

== ENCOUNTER 2019-12-02 08:33 | Outpatient (RCR) | payer OTHER | END 2020-03-01 | disposition home or self-care (01) | LOC: ONC 08:33 | PROVIDERS: ATTEND Internal Medicine Hematology & Oncology | DX: I82.452 Acute embolism and thrombosis of left peroneal vein (principal); I82.442 Acute embolism and thrombosis of left tibial vein | CPT/HCPCS: 81240; 81241; 99214 ==

== ENCOUNTER → 2020-02-06 | Outpatient (CLI) | payer OTHER | LOC: LABNPT 14:10 | PROVIDERS: ATTEND Family Medicine | DX: R50.9 Fever, unspecified (principal); D89.9 Disorder involving the immune mechanism, unspecified | CPT/HCPCS: 87430; 87635; 87804 ==

== ENCOUNTER → 2020-04-27 | Outpatient (CLI) | payer OTHER ==
--- NOTE | 2020-04-27 09:17 | Diagnostic Imaging Report ---
PROCEDURE: US left lower extremity venous. TECHNIQUE: Multiple real-time grayscale images were obtained over the left lower extremity in various projections. Additional duplex Doppler and color Doppler images were also obtained. INDICATION: Recurrent DVT. Correlation is made with prior left lower extremity venous Doppler on 11/04/2019. Left lower extremity deep venous system demonstrates normal compressibility with normal response to augmentation and Valsalva. The common femoral, superficial femoral and popliteal veins are patent. There is continued thrombus identified in the peroneal vein in the calf, similar to examination from 6 months earlier. No fluid collection is identified. IMPRESSION: No evidence of left lower extremity femoral-popliteal DVT. There continues to be thrombus in the peroneal veins of the calf. Dictated by: Dictated on workstation # [id number]
== END ==
LOC: RAD 07:58
PROVIDERS: ATTEND Internal Medicine Hematology & Oncology
DX: I82.452 Acute embolism and thrombosis of left peroneal vein (principal)

== ENCOUNTER 2020-06-22 08:52 | Outpatient (RCR) | payer OTHER ==
[2020-04-20 09:47] LABS: BASOPHILS % (AUTO) 0 % (0-10); EOSINOPHILS # (AUTO) 0.2 10^3/uL (0.0-0.3); EOSINOPHILS % (AUTO) 2 % (0-10); HEMATOCRIT 45 % (40-54); HEMOGLOBIN 15.2 G/DL (13.3-17.7); LYMPHOCYTES # (AUTO) 4.3 X 10^3 (1.0-4.0); LYMPHOCYTES % (AUTO) 35 % (12-44); MEAN CORPUSCULAR HEMOGLOBIN 32 PG (25-34); MEAN CORPUSCULAR HGB CONC 34 G/DL (32-36); MEAN CORPUSCULAR VOLUME 93 FL (80-99); MEAN PLATELET VOLUME 10.1 FL (7.4-10.4); MONOCYTES % (AUTO) 8 % (0-12); NEUTROPHILS # (AUTO) 6.9 X 10^3 (1.8-7.8); NEUTROPHILS % (AUTO) 56 % (42-75); PLATELET COUNT 294 10^3/uL (130-400); WHITE BLOOD COUNT 12.5 10^3/uL (4.3-11.0)
[2020-04-20 10:07] LABS: ALANINE AMINOTRANSFERASE 28 U/L (0-55); ALBUMIN 3.9 GM/DL (3.2-4.5); ALKALINE PHOSPHATASE 59 U/L (40-136); BILIRUBIN,TOTAL 0.5 MG/DL (0.1-1.0); BUN/CREATININE RATIO 10; CALCIUM 8.7 MG/DL (8.5-10.1); CARBON DIOXIDE 24 MMOL/L (21-32); CHLORIDE 105 MMOL/L (98-107); CREATININE SERUM 1.05 MG/DL (0.60-1.30); GFR ESTIMATED > 60; GLUCOSE 101 MG/DL (70-105); POTASSIUM 3.9 MMOL/L (3.6-5.0); SODIUM 139 MMOL/L (135-145); TOTAL PROTEIN 6.7 GM/DL (6.4-8.2)
== END 2020-07-19 | disposition home or self-care (01) ==
LOC: ONC 08:52
PROVIDERS: ATTEND Internal Medicine Hematology & Oncology
DX: I82.402 Acute embolism and thrombosis of unspecified deep veins of left lower extremity (principal); K51.90 Ulcerative colitis, unspecified, without complications; D68.59 Other primary thrombophilia
CPT/HCPCS: 80053; 85025; G0463; 85300; 85302; 85305; 86147; 99213